=== PATIENT | female | born 1995 | race Hispanic/Latino ===

== ENCOUNTER 2020-11-29 00:04 | Emergency (ER) | payer OTHER, SELFPAY ==
[2020-11-29] MEDS ORDERED: Acetaminophen 500 MG TAB ONE (00:23)
[2020-11-29 03:40] LABS: SARS-CoV-2 NAA Rapid Test DETECTED (NotDetected)
== END 2020-11-29 00:33 | disposition home or self-care (01) ==
LOC: ERS 00:04
DX: U07.1 COVID-19 (principal)
CPT/HCPCS: 99284; U0002